=== PATIENT | male | born 2000 | race Caucasian/White ===

== ENCOUNTER → 2024-11-19 11:35 | Outpatient (REF) | payer BC, SELFPAY | LOC: RAD 11:35 | PROVIDERS: ATTENDING PHYSICIAN Physician Assistant Medical | DX: M54.41 Lumbago with sciatica, right side (principal) | CPT/HCPCS: 72110 ==

== ENCOUNTER 2024-12-25 08:59 | Outpatient (RCR) | payer BC, SELFPAY | END 2024-12-25 23:59 | disposition home or self-care (01) | LOC: RPT 08:59 | PROVIDERS: ATTENDING PHYSICIAN Physician Assistant Medical; FAMILY PHYSICIAN Family Medicine | DX: M54.41 Lumbago with sciatica, right side (principal); Z73.6 Limitation of activities due to disability | CPT/HCPCS: 97010; 97110; 97112; 97161 ==

== ENCOUNTER 2025-01-30 07:00 | Outpatient (RCR) | payer BC, SELFPAY | END 2025-01-30 23:59 | disposition home or self-care (01) | LOC: RPT 07:00 | PROVIDERS: ATTENDING PHYSICIAN Physician Assistant Medical; FAMILY PHYSICIAN Family Medicine | DX: M54.41 Lumbago with sciatica, right side (principal); Z73.6 Limitation of activities due to disability | CPT/HCPCS: 97010; 97110; 97112; 97140 ==

== ENCOUNTER 2025-02-26 06:27 | Outpatient (RCR) | payer BC, SELFPAY | END 2025-02-27 11:20 | disposition home or self-care (01) | LOC: RPT 06:27 | PROVIDERS: ATTENDING PHYSICIAN Physician Assistant Medical; FAMILY PHYSICIAN Family Medicine | DX: M54.41 Lumbago with sciatica, right side (principal); Z73.6 Limitation of activities due to disability | CPT/HCPCS: 97110; 97112 ==